=== PATIENT | male | born 1995 | race Caucasian/White ===

== ENCOUNTER 2019-06-11 08:03 | Emergency (ER) | payer SELFPAY ==
[~2019-06-11] VITALS: Ht 172.7 cm; Wt 90.9 kg
[2019-06-11 08:08] VITALS: BP 140/83
[2019-06-11] MEDS ORDERED: AUGMENTIN 500-1 EACH PO (08:25)
== END 2019-06-11 08:30 | disposition home or self-care (01) ==
LOC: ED 08:03
DX: K05.00 Acute gingivitis, plaque induced (principal); K04.7 Periapical abscess without sinus; F17.210 Nicotine dependence, cigarettes, uncomplicated

== ENCOUNTER 2020-12-02 19:07 | Emergency (ER) | payer SELFPAY ==
[~2020-12-02 19:07] MED LIST: AMOXICILLIN875 MG PO; AUGMENTIN 500-1 EACH PO; DEXTROAMPH SACC30 MG PO
[2020-12-02] MEDS ORDERED: AMOXICILLI400 MG/52 PO (20:29)
[2020-12-02 20:36] VITALS: BP 114/75
== END 2020-12-02 20:36 | disposition home or self-care (01) ==
LOC: ED 19:07
DX: J02.0 Streptococcal pharyngitis (principal); F90.9 Attention-deficit hyperactivity disorder, unspecified type; F17.200 Nicotine dependence, unspecified, uncomplicated

== ENCOUNTER 2021-03-14 20:51 | Emergency (ER) | payer SELFPAY ==
[~2021-03-14] VITALS: Ht 172.7 cm; Wt 81.7 kg
[~2021-03-14 20:51] MED LIST changes: +AMOXICILLI400 MG/52 PO
[2021-03-14 22:09] LABS: HEMATOCRIT 42.4 % (42.0-52.0); HEMOGLOBIN 14.1 g/dL (13.5-18.0); MEAN CELL VOLUME 88 fl (78-100); MEAN CORPUSCULAR HEMOGLOBIN 29 pg (27-31); MEAN CORPUSCULAR HGB CONC 33 g/dL (33-37); MEAN PLATELET VOLUME 8.6 fl (7.4-10.4); PLATELET COUNT 244 K/mm3 (130-400); RED BLOOD COUNT 4.81 M/mm3 (4.20-5.60); RED CELL DISTRIBUTION WIDTH 12.2 % (11.5-14.5); WHITE BLOOD COUNT 6.7 K/mm3 (4.8-10.8)
[2021-03-14 22:18] LABS: ALBUMIN 4.4 g/dL (3.5-5.0)
[2021-03-14 22:19] LABS: CALCIUM 9.3 mg/dL (8.3-10.5)
[2021-03-14 22:20] LABS: TOTAL PROTEIN 7.5 g/dL (6.4-8.3)
[2021-03-14 22:22] LABS: TOTAL BILIRUBIN 0.3 mg/dL (0.2-1.2)
[2021-03-14 22:28] LABS: BAND 84 % (0-10); LYMPHOCYTE 12 % (20-51); NEUTROPHILS 4 % (42-75)
[2021-03-14] MEDS ORDERED: AMOXICILLIN 50500 MG PO (22:38)
[2021-03-14 23:04] VITALS: BP 130/71
== END 2021-03-14 23:04 | disposition home or self-care (01) ==
LOC: ED 20:51
PROVIDERS: Family Medicine
DX: U07.1 COVID-19 (principal); K02.9 Dental caries, unspecified; F17.210 Nicotine dependence, cigarettes, uncomplicated

== ENCOUNTER 2024-11-23 01:07 | Emergency (ER) | payer SELFPAY ==
[~2024-11-23] VITALS: Ht 172.7 cm; Wt 88.2 kg
[~2024-11-23 01:07] MED LIST changes: +AMOXICILLIN 50500 MG PO
[2024-11-23] MEDS ORDERED: LIDOCAINE HCL100 M2 MM (01:36)
[2024-11-23] MEDS ORDERED: AMOXIL500 M1 PO (01:36)
[2024-11-23] MEDS ORDERED: Lidocaine 2% Viscous 15 ML UNIT DOSE CUP MM ONE (01:45)
[2024-11-23] MEDS ORDERED: Amoxicillin 250 MG CAP PO ONE (01:45)
[2024-11-23 01:46] VITALS: BP 128/76
== END 2024-11-23 02:21 | disposition home or self-care (01) ==
LOC: ED 01:07
DX: J02.0 Streptococcal pharyngitis (principal); F17.290 Nicotine dependence, other tobacco product, uncomplicated; Z89.012 Acquired absence of left thumb